=== PATIENT | male | born 1985 | race Caucasian/White ===

== ENCOUNTER 2017-06-06 20:38 | Emergency (ER) | payer OTHER ==
--- NOTE | 2017-06-06 21:39 | EDM.PDOC ---
ED HPI GENERAL MEDICAL PROBLEM - General Chief Complaint: Gastrointestinal Problem Stated Complaint: BACK PAIN AND CHEST PAIN Time Seen by Provider: 06/06/17 21:05 Source of Information: Reports: Patient History Limitations: Reports: No Limitations - History of Present Illness INITIAL COMMENTS - FREE TEXT/NARRATIVE: Patient presents today with complaints of chest pain at rest with shortness of breath and palpitations since 0700 today. He denies fever, chills, nausea, change in bowel or bladder habits. Onset: Today, Sudden Onset Date: 06/06/17 Onset Time: 07:00 Duration: Hour(s): Location: Reports: Chest Severity: Moderate Improves with: Reports: None Worsens with: Reports: Rest Associated Symptoms: Reports: No Other Symptoms Middle Chest Pain Score (Numeric/FACES): 7 - Related Data Allergies Allergy/AdvReac Type Severity Reaction Status Date / Time No Known Allergies Allergy Verified 06/06/17 20:50 Home Meds: Home Meds Omeprazole 20 mg PO DAILY 06/06/17 [History] Past Medical History Musculoskeletal History: Reports: Other (See Below) Other Musculoskeletal History: low back pain hx. of - Past Surgical History Head Surgeries/Procedures: Reports: None Dermatological Surgical History: Reports: None Social & Family History - Tobacco Use Smoking Status *Q: Current Every Day Smoker Years of Tobacco use: 10 Packs/Tins Daily: 0.5 Used Tobacco, but Quit: No Second Hand Smoke Exposure: Yes - Caffeine Use Caffeine Use: Reports: Coffee - Recreational Drug Use Recreational Drug Use: No ED ROS GENERAL - Review of Systems Review Of Systems: See Below Constitutional: Denies: Fever, Chills, Malaise, Weakness, Fatigue, Night Sweats HEENT: Reports: No Symptoms Cardiovascular: Reports: Chest Pain, Palpitations. Denies: Dyspnea on Exertion , Edema, Lightheadedness, Orthopnea, PND, Syncope Endocrine: Reports: No Symptoms GI/Abdominal: Denies: Abdominal Pain, Black Stool, Constipation, Diarrhea, Difficulty Swallowing, Distension, Nausea, Vomiting : Reports: No Symptoms Musculoskeletal: Reports: No Symptoms Skin: Reports: No Symptoms Neurological: Denies: Confusion, Dizziness, Headache, Numbness, Paresthesia, Seizure, Tingling, Weakness Psychiatric: Reports: Other (Patient does report increase in stress). Denies: Agitation, Anxiety, Confusion, Depression, Homicidal Ideation, Suicidal Ideation Hematologic/Lymphatic: Reports: No Symptoms Immunologic: Reports: No Symptoms ED EXAM, GENERAL - Physical Exam Exam: See Below Exam Limited By: No Limitations General Appearance: Alert, WD/WN, No Apparent Distress Eye Exam: Bilateral Eye: Normal Inspection, PERRL Ears: Normal External Exam, Normal Canal, Hearing Grossly Normal, Normal TMs Ear Exam: Bilateral Ear: Auricle Normal, Canal Normal, TM normal Nose: Normal Inspection, Normal Mucosa, No Blood Throat/Mouth: Normal Inspection, Normal Lips, Normal Teeth, Normal Gums, Normal Oropharynx, Normal Voice, No Airway Compromise Head: Atraumatic, Normocephalic Neck: Normal Inspection, Supple, Non-Tender, Full Range of Motion. No: Lymphadenopathy (R), Lymphadenopathy (L) Respiratory/Chest: No Respiratory Distress, Lungs Clear, Normal Breath Sounds, No Accessory Muscle Use, Chest Non-Tender, Other (No pain with palpation to chest) Cardiovascular: Normal Peripheral Pulses, Regular Rate, Rhythm, No Edema, No Gallop, No Murmur, No Rub Peripheral Pulses: 2+: Radial (L), Radial (R), Dorsalis Pedis (L), Dorsalis Pedis (R) GI/Abdominal: Normal Bowel Sounds, Soft, Non-Tender, No Organomegaly, No Distention Back Exam: Normal Inspection, Full Range of Motion. No: CVA Tenderness (R), CVA Tenderness (L) Extremities: Normal Inspection, Normal Range of Motion, Non-Tender, No Pedal Edema, Normal Capillary Refill Neurological: Alert, Oriented, CN II-XII Intact, Normal Cognition, Normal Gait, No Motor/Sensory Deficits Psychiatric: Normal Affect, Normal Mood Skin Exam: Warm, Dry, Intact, Normal Color, No Rash Lymphatic: No Adenopathy EKG INTERPRETATION EKG Date: 06/06/17 Rhythm: NSR [place]: Normal P-Wave: Present QRS: Normal ST-T: Normal QT: Normal Course - Vital Signs Last Recorded V/S: Last Vital Signs Temp 37 C 06/06/17 20:46 Pulse 58 L 06/06/17 20:46 Resp 16 06/06/17 20:46 BP 145/79 H 06/06/17 20:46 Pulse Ox 99 06/06/17 20:46 - Orders/Labs/Meds Orders: Active Orders 24 hr Category Date Time Status EKG Documentation Completion [RC] ASDIRECTED Care 06/06/17 21:31 Active Chest 2V [CR] Stat Exams 06/06/17 21:31 Taken EKG 12 Lead [EK] Routine Ther 06/06/17 21:31 Ordered Labs: Laboratory Tests 06/06/17 06/06/17 06/06/17 Range/Units 21:46 21:46 21:46 WBC 12.7 H (4.5-11.0) K/uL RBC 4.93 (4.30-5.90) M/uL Hgb 14.6 (12.0-15.0) g/dL Hct 41.9 (40.0-54.0) % MCV 85 (80-98) fL MCH 30 (27-31) pg MCHC 35 (32-36) % Plt Count 277 (150-400) K/uL Neut % (Auto) 59 (36-66) % Lymph % (Auto) 30 (24-44) % [place] % (Auto) 6 (2-6) % Eos % (Auto) 4 (2-4) % Baso % (Auto) 1 (0-1) % D-Dimer, Quantitative < 100 (0.0-400.0) ng/mL Sodium 139 L (140-148) mmol/L Potassium 3.7 (3.6-5.2) mmol/L Chloride 104 (100-108) mmol/L Carbon Dioxide 26 (21-32) mmol/L Anion Gap 12.7 (5.0-14.0) mmol/L BUN 12 (7-18) mg/dL Creatinine 1.2 (0.8-1.3) mg/dL Est Cr Clr Drug Dosing 93.78 mL/min Estimated GFR (MDRD) > 60 (>60) Glucose 92 (74-106) mg/dL Calcium 8.8 (8.5-10.1) mg/dL Total Bilirubin 0.3 (0.2-1.0) mg/dL AST 17 (15-37) U/L ALT 32 (12-78) U/L Alkaline Phosphatase 76 (46-116) U/L Troponin I < 0.017 (0.000-0.056) ng/mL Total Protein 7.6 (6.4-8.2) g/dL Albumin 4.0 (3.4-5.0) g/dL Globulin 3.6 H (2.3-3.5) g/dL Albumin/Globulin Ratio 1.1 L (1.2-2.2) All lab work and x-ray reviewed with patient and his . No acute findings noted. All their questions answered, they are in agreement with plan. - Radiology Interpretation Free Text/Narrative:: Chest x-ray wet read, no acute findings. Departure - Departure Time of Disposition: 22:52 Disposition: Home, Self-Care 01 Condition: Good Clinical Impression: Atypical chest pain, GERD (gastroesophageal reflux disease), Heart palpitations Forms: ED Department Discharge Additional Instructions: Take acetaminophen or ibuprofen for pain as directed. Continue use of omeprazole daily. Eat a bland diet to decrease risk of acid reflux. You can also elevate the head of your bed a few inches to assist with reflux. Follow up with your primary care provider in 7 to 10 days for recheck of chest pain, palpitations and acid reflux. You may benefit from a cardiac holter monitor due to palpitations and chest pain while at rest. Report to the nearest emergency room for chest pain, worsening or concerns. - My Orders Last 24 Hours: My Active Orders 06/06/17 21:31 EKG Documentation Completion [RC] ASDIRECTED Chest 2V [CR] Stat EKG 12 Lead [EK] Routine - Assessment/Plan Last 24 Hours: My Active Orders 06/06/17 21:31 EKG Documentation Completion [RC] ASDIRECTED Chest 2V [CR] Stat EKG 12 Lead [EK] Routine Assessment:: Atypical chest pain Palpitations at rest (no ectopy noted while in the emergency room) GERD Plan: Patient will continue use of omeprazole. He can take ibuprofen and acetaminophen as directed for pain. He will follow up with his primary provider in the next 7 to 10 days for a recheck, possible use of holter monitor or further evaluation of his GERD.
[2017-06-06 22:52] VITALS: BP 136/79
--- NOTE | 2017-06-09 10:50 | CR ---
Chest 2V INDICATION: chest pain/palpitations FINDINGS: Negative chest.
== END 2017-06-06 23:02 | disposition home or self-care (01) ==
LOC: JP.ED 20:38
DX: K21.9 Gastro-esophageal reflux disease without esophagitis (principal); R00.2 Palpitations; F17.210 Nicotine dependence, cigarettes, uncomplicated; Z79.899 Other long term (current) drug therapy
CPT/HCPCS: 36415; 71020; 71020-26; 80053; 84484; 85025; 85379; 93005; 99285-25